=== PATIENT | male | born 1940 | race Caucasian/White ===

== ENCOUNTER → 2023-05-23 08:44 | Outpatient (BNVA) | payer MEDICARE, SELFPAY | PROVIDERS: Referring Provider Dermatology; Visit Provider Podiatrist Foot & Ankle Surgery | DX: L60.3 Nail dystrophy (principal); M21.611 Bunion of right foot; M21.612 Bunion of left foot; M20.41 Other hammer toe(s) (acquired), right foot; M20.42 Other hammer toe(s) (acquired), left foot | CPT/HCPCS: 99203 ==

== ENCOUNTER → 2024-11-27 10:48 | Outpatient (BNVA) | payer MEDICARE, SELFPAY | PROVIDERS: PCP Internal Medicine; Visit Provider Podiatrist Foot & Ankle Surgery | DX: L60.3 Nail dystrophy (principal); M21.611 Bunion of right foot; M21.612 Bunion of left foot; M20.41 Other hammer toe(s) (acquired), right foot; M20.42 Other hammer toe(s) (acquired), left foot | CPT/HCPCS: 99213 ==

== ENCOUNTER → 2024-12-25 09:12 | Outpatient (BNVA) | payer MEDICARE, SELFPAY | PROVIDERS: PCP Internal Medicine; Visit Provider Podiatrist Foot & Ankle Surgery | DX: L60.3 Nail dystrophy (principal); L60.0 Ingrowing nail | CPT/HCPCS: 11750; J9999 ==

== ENCOUNTER → 2025-01-08 09:09 | Outpatient (BNVA) | payer MEDICARE, SELFPAY | PROVIDERS: PCP Internal Medicine; Visit Provider Podiatrist Foot & Ankle Surgery | DX: L60.0 Ingrowing nail (principal); L60.3 Nail dystrophy | CPT/HCPCS: 99213 ==

== ENCOUNTER 2025-03-01 20:35 | Emergency (ER) | payer MEDICARE, SELFPAY ==
--- OUTSIDE RECORDS SUMMARY | 2024-12-15 04:30 | XMS_ITS ---
Author Organization [facility] Address [address] [place] [address] Care Team Providers Care Bottom Turning Lathe Tender Name Role Phone Ravinder ARCHER, Lisa Primary Care Provider Unavailab Humble Taylor Unavailable [phone] Jonas Crabtree Unavailable Unavailable REASON FOR VISIT INCREASED SOB, FATIGUE 11/21/24 ~TLD Encounters Encounter Location Date Provider Diagnosis [facility] [address] [place] [phone] 12/15/2024 Humble Castellon Plan Of Treatment Next Appt Details Provider Name:Humble Castellon, 1 08/05/2024 10:30:00 AM, [address] [place] [address], [phone], Progress Notes * Jonny RHODES BDOB: [birth year] (84 yo M)Acc No.[id number]:12/15/2024 Progress Notes Patient: Jonny Garcia Provider: Roger Castellon MD :1940 A ge:84 Y S ex:Male Date:12/15/2024 Address:[address] [place], [place] [id number] Pcp:Lisa Castellon MD Subjective: * Chief Complaints: * I NCREASED SOB, FATIGUE 11/21/24 ~TLD Care Plan Details* * Electronic signature of Humble Castellon MD on 03/01/2025 at 08:56 PM CDT Sign off status: Pending * Provider: Roger Castellon MD Date: 0 12/15/2024 Generated for Laurel valerio/Kristine/Jeb on: 0 03/01/2025 08:56 PM CDT
[2025-03-01 20:52] VITALS: BP 180/71; PULSE 82; TEMP 36.5; O2SAT 97
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
--- OUTSIDE RECORDS SUMMARY | 2025-03-01 20:56 | XMS_ITS | Patient Health Record ---
Author Organization [facility] director of channel marketing [facility] Address [address] [place] [address] Care Team Providers Care Production Generalist Name Role Phone Arvin Bell M.D. Primary Care Provider Unav ailable Reason For Referral No Information Medications Medication SIG (Take, Route, Frequency, Duration) Notes Start Date End Date Status Fish Oil *please review f or potential update for e-prescription and drug interaction check* Active Aspirin Adult Low Strength 81 MG take 1 tablet (81 mg) by oral route once daily Oral 1 Active Crestor Oral *please review f or potential update for e-prescription and drug interaction check* Active Vit D *please review f or potential update for e-prescription and drug interaction check* Active Problems Problem Type SNOMED Code ICD Code Onset Dates Problem Status W/U Status Risk Notes Problem Cervicalgia (86155534) Cervicalgia (M54.2) Active confirmed [id number] 182- Problem Brachial radiculitis (28633429) Cervical radiculitis (left shoulder muscles atrophy) (723.4) Active confirmed [id number] 182- Plan Of Treatment No Information Insurance Providers Payer Name Payer Address Payer Phone Subscriber Number Group Number Insured Name Patient Relationship to Insured Coverage Start Date Coverage End Date [employer] [place] [address] [place] [phone] [id number] JACY RHODES Self - patient is the insured [employer] [address] [place] [phone] [id number] JACY RHODES Self - patient is the insured Medical (General) History Surgical History Surgery Date(Month/Year) Tonsillectomy; 03/25/2012
--- OUTSIDE RECORDS SUMMARY | 2025-03-01 20:56 | XMS_ITS | Patient Health Record ---
Author Organization [facility] Billing Info Address [address] [place] [id number] Care Team Providers Care Chronograph Operator Name Role Phone Jonas Crabtree MD Primary Care Provider Unavaila ble Allergies Allergen (clinical drug ingredient) Drug/Non Drug Allergy documented on EMR Reaction Allergy Type Onset Date Status simvastatin Zocor Unknown Drug Allergy Activ e Sulfa Unknown Drug Allergy Active Reason For Referral No Information Medications Medication SIG (Take, Route, Frequency, Duration) Notes Start Date End Date Status Rosuvastatin Calcium 40 MG 1 tablet Oral ly Once a day for 90 day(s) Active Vitamin B1 1 tab(s) Orally Daily Active Vitamin D 1000 UNIT 1 tablet Orally Once a day Active Fish Oil 1200 MG 1 cap(s) Orally Daily Active Calcium 600-200 MG-UNIT Orally Active Memantine HCl 10 MG 1 tablet Orally BID for 90 days 07/14/2021 Active Timolol Hemihydrate 0.5 % 1 drop into af fected eye Ophthalmic Once a day Active Sertraline HCl 50 MG 1 tablet Orally Silvia ly for 90 day(s) Active Donepezil HCl 10 MG 1 tablet Orally Shelly y for 90 days Active Immunizations Vaccine Route Administration Date Status Comme nts zZOSTER (ZOSTAVAX) Unknown 06/01/2015 Administered PNEUMOCOCCAL - 23 POLY (PNEUMOVAX 23) Unknown 06/01/2015 Administered PNEUMOCOCCAL 13 CONJ ([id number]) IM Intramuscular 12/17/2017 Administered DTAP (Past vaccine of unknown type) Unknown 06/01/2015 Administered FLU (Past vaccine of unknown type) Unknown 07/25/2019 Administered FLU (Past vaccine of unknown type) Unknown 08/15/2021 Administered zFLU 3V (FLUZONE HIGH DOSE), 65 YRS+, NO PRES - ALL PAYORS Unknown 05/14/2019 Administered zFLU 4V (FLUZONE QUAD), 3 YRS+, NO PRES - ALL PAYORS Unknown 06/04/2017 Administered zFLU 4V (FLUZONE QUAD), 3 YRS+, NO PRES - ALL PAYORS Unknown 05/15/2018 Administered ZOSTER (SHINGRIX) Unknown 08/13/2020 Administered ZOSTER (SHINGRIX) Unknown 12/29/2020 Administered zCOVID-19 (Pfizer-BioNTech Purple Cap Comirnaty) 12+yrs, NO PRES Unknown 09/24/2020 Administered zCOVID-19 (Pfizer-BioNTech Purple Cap Comirnaty) 12+yrs, NO PRES Unknown 10/15/2020 Administered zCOVID-19 (Pfizer-BioNTech Past vaccine of unknown type) Unknown 06/29/2021 Administered Social History Tobacco Use: Social History Observation Description Date Details (start date - stop date) Former Smoker NA - NA Tobacco Status: Question Answer Notes Patient is a former smoker Problems Problem Type SNOMED Code ICD Code Onset Dates Problem Status W/U Status Risk Notes Problem 928773477 Mixed hyperlipidemia (E78.2) Active confirmed Problem 06445700 Trigeminal neuralgia (G50.0) Active confirmed Problem 988626851 Tobacco abuse (Z72.0) Active confirmed Problem 92592967 Vitamin D deficiency (E55.9) Active confirmed Problem 170711852 CKD (chronic kidney disease) stage 3, GFR 30-59 ml/min (N18.3) Active confirmed Problem 72914102 Benign hypertension (I10) Active confirmed Problem 135245380 GERD without esophagitis (K21.9) Active confirmed Problem 191823468 History of tobacco abuse (Z87.891) Active confirmed Problem 55730810 Attention defici t (R41.840) Active confirmed Problem 25956088 Right bundle branch block (I45.10) Active confirmed Problem 6727789438092 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) Active confirmed Problem 50959894 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) Active confirmed Problem 109770448 CKD (chronic kidney disease) stage 2, GFR 60-89 ml/min (N18.2) Active confirmed Problem 592314781 Fibromuscular dysplasia (I77.3) Active confirmed Problem 35587617 Dementia without behavioral disturbance, unspecified dementia type (F03.90) Active confirmed Problem 690205596 Osteopenia of lower leg, unspecified laterality (M85.869) Active confirmed Problem 56818262 Type 2 diabetes mellitus with complication, unspecified whether fci insulin use (E11.8) Active confirmed Problem mood swings (finding) (66353228) Mood changes (R45.86) Active confirmed Plan Of Treatment Pending Test Test Name Order Date MRA-HEAD; W/O CONTRAST MATL(S) (93965) 0 02/11/2019 MRA-NECK; W/O CONTRAST MATL( S), FOLLOWED BY CONTRAST MATL(S) & FURTHER SEQUENCES (33140) 02/11/2019 MRI-BRAIN; W/O CONTRAST MATL , THEN W/CONTRASTMATL (S) & FURTHER SEQUENCES (49014) 02/11/2019 US- CAROTID DUPLEX BILATERAL (30858) (Sc Image-CAROTDUPBI) 04/19/2021 Future Test Test Name Order Date DEXA BONE DENSITY STUDY 1 + SITS AXIAL S [place] (51948) 05/21/2017 XRAY- CHEST PA AND LATERAL (50600)([facility]- CHE2) 05/21/2017 Hemoglobin A1c ([id number]) 01/31/2022 Basic Metabolic Panel (8) ([id number]) Insurance Providers Payer Name Payer Address Payer Phone Subscriber Number Group Number Insured Name Patient Relationship to Insured Coverage Start Date Coverage End Date [facility] [address] [address] [facility] [place] [place] [id number] Jonny Armstrong Self - patient is the insured 1 1 MEDICARE [place] PART B [address] [place], [place] [id number] Jonny Armstrong Self - patient is the insured 7 0 MEDICARE [place] PART B [address] [address] [place], [place] [id number] Jonny Armstrong Self - patient is the insured 7 0 Medical (General) History Medical History History ICD Code Arteriosclerosis of coronary artery BPH without urinary obstruction CAD Carotid bruit present Cervical radiculopathy Hyperlipidemia Hypertension 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 Negativ eecho, stableNovember 2019 ( calcium score 577-2010) Dr. gonzalez dementia- Dr brower Surgical History Surgery Date(Month/Year) Tonsillectomy Cataract surgery bilat 03/12, 04/11 egd neg 12'21 Memory Issues
--- NOTE | 2025-03-01 21:49 | CTR_ITS ---
PROCEDURE INFORMATION: Exam: CT Cervical Spine Without Contrast Exam date and time: 03/01/2025 10:38 PM Age: 84 years old Clinical indication: Injury or trauma; Blunt trauma; Fall face first onto gravel. Laceration to frontal. TECHNIQUE: Imaging protocol: Computed tomography of the cervical spine without contrast. Radiation optimization: All CT scans at this facility use at least one of these dose optimization techniques: automated exposure control; mA and/or kV adjustment per patient size (includes targeted exams where dose is matched to clinical indication); or iterative reconstruction. COMPARISON: CT head wo con* [id number] 03/01/2025 10:36 PM RADIATION DOSE METRICS: Total DLP (mGy-cm): 268.95 FINDINGS: Bones: No acute fracture. Normal alignment. No significant disc bulge or herniation. No severe spinal canal stenosis. No significant neural foraminal narrowing. There is severe degenerative disease of the spine. Lungs: Lung apices are normal. Soft tissues: Unremarkable. CT/CT cervical spin wo con* [id number] IMPRESSION: No acute cervical spine fracture.
--- NOTE | 2025-03-01 21:50 | CTR_ITS ---
PROCEDURE INFORMATION: Exam: CT Head Without Contrast Exam date and time: 03/01/2025 10:36 PM Age: 84 years old Clinical indication: Injury or trauma; Blunt trauma (contusions or hematomas); Fall face first onto gravel. Laceration to frontal. ; Additional info: Fall with laceration TECHNIQUE: Imaging protocol: Computed tomography of the head without contrast. Radiation optimization: All CT scans at this facility use at least one of these dose optimization techniques: automated exposure control; mA and/or kV adjustment per patient size (includes targeted exams where dose is matched to clinical indication); or iterative reconstruction. COMPARISON: l spine RADIATION DOSE METRICS: Total DLP (mGy-cm): 1228.42 FINDINGS: Brain: No hemorrhage. Diffuse periventricular white matter disease indicating small vessel disease changes. No mass effect. No collections. Age related volume loss. Cerebral ventricles: No ventriculomegaly. Paranasal sinuses: No significant air-fluid levels noted in the visualized sinuses. Mastoid air cells: Mastoid air cells are aerated with no effusions. Bones: No acute osseous abnormality. Soft tissues: Soft tissue swelling overlying the frontal region. CT/CT head wo con* [id number] IMPRESSION: No acute intracranial abnormality.
--- NOTE | 2025-03-01 22:30 | ED_ITS ---
HPI - Head Injury 2 General: Chief complaint: Head Injury Stated complaint: Fell on gravel bleeding from face Time Seen by Provider: 03/01/25 21:48 History of Present Illness: Patient is a 4-year-old gentleman chronically on tamsulosin, dementia, that had a unwitnessed fall with laceration to nose, and forehead with question of LOC. He states he does not remember his fall. This is his normal mentation. His was not present. He has a laceration to his glabella/forehead, and mid nose, just under his nose, that are superficial. His tetanus was not up-to-date. He does not know when he took his medications, however states compliance. This occurred just prior to arrival Related Data Home Medications ?Medication ?Instructions ?Recorded ?Confirmed donepezil 10 mg tablet mg PO 05/23/23 01/08/25 memantine 10 mg tablet mg PO 05/23/23 01/08/25 rosuvastatin 40 mg tablet mg PO 05/23/23 01/08/25 sertraline 50 mg tablet mg PO 05/23/23 01/08/25 tamsulosin 0.4 mg capsule mg PO 05/23/23 01/08/25 timolol maleate 0.5 % eye drops 1 drp ophthalmic (eye) DAILY 05/23/23 01/08/25 Previous Rx's ?Medication ?Instructions ?Recorded cephalexin 500 mg capsule 500 mg PO BID #14 caps 12/25 silver sulfadiazine 1 % topical 1 applic topical BID # 50 grams 12/25/24 cream (Silvadene) cephalexin 500 mg capsule 500 mg PO BID 3 days #6 caps 03/01/25 Allergies Allergy/AdvReac Type Severity Reaction Status Date / Time Sulfa (Sulfonamide Allergy Unknown Verified 03/01/25 20:57 Antibiotics) Review of Systems 2 General: Reports: ROS unobtainable due to mental status PFSH ED 2 PFSH: Social History Smoking and tobacco/nicotine status: never used tobacco/nicotine Physical Exam 2 Const: COMMON NORMALS: no acute distress, average body habitus and patient oriented x3 HENMT: FACE & SINUS IMAGES: 1. laceration 2. superficial 3. superficial Eye: COMMON NORMALS: Equal, round and reactive pupils present, EOMs intact bilaterally, conjunctivae normal and no scleral icterus CONJUNCTIVA: Yes conjunctivae normal PUPIL: Yes Equal, round and reactive pupils present Neck/C-Spine: COMMON NORMALS: full ROM, no lymphadenopathy, supple and no meningeal signs Lymph: LYMPHATIC: no lymphadenopathy noted Chest: COMMONS NORMALS: normal inspection of the chest and normal palpation of entire chest wall Resp: COMMON NORMALS: normal respiratory effort, No retractions and clear to auscultation bilaterally AUSCULTATION: clear to auscultation bilaterally Cardio: COMMON NORMALS: regular rate and regular rhythm RATE: regular rate RHYTHM: regular rhythm GI: COMMON NORMALS: Normal to inspection, nondistended, normoactive bowel sounds present, Soft to palpation, non-tender and No hepatosplenomegaly present PALPATION: Yes Soft to palpation and Yes No hepatosplenomegaly present : COMMON NORMALS: Yes no CVA tenderness BLADDER/KIDNEY EXAM: Yes no CVA tenderness Back/Pelvis: COMMON NORMALS: no CVA tenderness Extremity: COMMON NORMALS: normal to inspection, full ROM, capillary refill normal and no joint enlargement Neuro: COMMON NORMALS: patient oriented x3 MENINGEAL SIGNS: Yes no meningeal signs Psych: COMMON NORMALS: mental status grossly normal (at baseline per ) Procedures Laceration Laceration 1: Site: face Side (If applicable): left (mid left) Size (cm): 2 Description: flap Depth: simple, single layer Local Anesthetic: lidocaine 1% Amount of anesthesia used (mL): 1 Pre-repair: wound explored, irrigated extensively and deep structures intact Skin layer closed with: nylon Size (cm): 4-0 Number of sutures: 1 Technique: simple, interrupted Course 2 Vital Signs: Vital signs: Vital Signs Temperature 97.7 F 03/01/25 20:52 Pulse Rate 82 03/01/25 20:52 Blood Pressure 180/71 03/01/25 20:52 Pulse Oximetry 97 03/01/25 20:52 Oxygen Delivery Me thod Room Air 03/01/25 20:52 MDM - Head Injury Medcial Decision Making Patient is an 84-year-old gentleman with dementia, on alpha adrenergic-liz, poor gait, no history, unwitnessed, and question of LOC. 1 small flap at his glabella was sutured and recommended to be removed in 5 days. Prophylactic Keflex was sent to the pharmacy. I will hold his tamsulosin until he can follow-up with his primary doctor for possibly restarting this and any behavioral changes. Patient questions answered to their satisfaction. Medical Records I reviewed the patient's medical records. Lab Data Radiology Impressions Cervical Spine CT 03/01/25 21:49 IMPRESSION: No acute cervical spine fracture. Head CT 03/01/25 21:50 IMPRESSION: No acute intracranial abnormality. All radiology interpretation(s) finalized by discharge Discharge Plan Discharge Patient Disposition: Home Clinical Impression: Closed head injury Facial laceration Qualifiers: Encounter type: initial encounter Qualified Code(s): S01.81XA - Laceration without foreign body of other part of head, initial encounter Condition: Stable Prescriptions: New cephalexin 500 mg capsule 500 mg PO BID 3 Days Qty: 6 0RF No Action memantine 10 mg tablet PO sertraline 50 mg tablet PO tamsulosin 0.4 mg capsule PO donepezil 10 mg tablet PO timolol maleate 0.5 % drops 1 drp ophthalmic (eye) DAILY rosuvastatin 40 mg tablet PO silver sulfadiazine [Silvadene] 1 % cream 1 applic topical BID Qty: 50 0RF Rx Instructions: apply a 1.5 mm thickness cephalexin 500 mg capsule 500 mg PO BID Qty: 14 0RF Discharge Orders: Discharge ED (Routine); Ordered 03/01/25 Ordered By: Linda Merrill Referrals: Jonas Crabtree MD [Primary Care Provider, Family Practice] Discharge Diet: Usual diet Discharge Activity: Use walker/crutches as instructed Patient Instructions: Concussion (ED), Fall Prevention for Older Adults (ED), Patient Portal & Lydia Instructions Activity Restrictions/Additional Instructions: Hold your tamsulosin/Flomax until you follow-up with your doctor and your doctor okays you restarting this medication. This can cause increased falls. Remove sutures in 5 days-call tomorrow for an appointment follow-up with your doctor You may return to the ED to remove the suture, however there is a new visit that you will receive Return to ED with worsening falls, worsening pain, increasing redness. Wound care: Wash your hair and face daily then apply the Vaseline. Apply Vaseline to the superficial areas and suture Print Language: Tuvaluan Coding Level of Care Code ED Component Design Engineer for Aura Barrios
[2025-03-01] MEDS: tetanus-dipt-pertussis 0.5 mL SDV IM (23:14)
== END 2025-03-01 23:40 | disposition home or self-care (01) ==
PROVIDERS: Emergency Provider Physician Assistant; PCP Family Medicine
DX: S01.81XA Laceration without foreign body of other part of head, initial encounter (principal); S01.21XA Laceration without foreign body of nose, initial encounter; S09.8XXA Other specified injuries of head, initial encounter; W19.XXXA Unspecified fall, initial encounter
CPT/HCPCS: 12011; 70450; 72125; 90715; 99284; J9999